=== PATIENT | female | born 1945 | race Hispanic/Latino ===

== ENCOUNTER 2019-01-13 14:26 | Inpatient (IN) | payer OTHER, MEDICARE ==
[~2019-01-13] VITALS: Ht 149.9 cm; Wt 95.3 kg
[~2019-01-13 14:26] MED LIST: ACET-2123 PO; AEC81 PO; ATOR20TA65 PO; BISA-72 PO; CLOT15CR4 TP; DICY10 PO; DIPH25CA7 PO; Diltiazem Hcl PO; FERR-82 PO; FURO40TA5 PO; Folic Acid PO; HYDR-4064 PO; INS7030 SQ; INSREG SQ; LORA10TA7 PO; LOSA25TA41 PO; Lactulose PO; NYST100P2 TP; PANT40TA PO; POLY17PO4 PO; [UNRECOGNIZED DRUG - CODE] TP
[2019-01-13 14:56] LABS: BASOPHILS % (AUTO) 0.4 % (0.0-5.0); EOSINOPHILS % (AUTO) 0.3 % (0.0-8.0); LYMPHOCYTES % (AUTO) 10.7 % (21.0-51.0); MEAN CORPUSCULAR HEMOGLOBIN 27.1 pg (27.0-33.0); MEAN CORPUSCULAR VOLUME 84.7 fL (79-99); MONOCYTES % (AUTO) 8.5 % (3.0-13.0); NEUTROPHILS % (AUTO) 80.1 % (40.0-77.0); PLATELET COUNT (AUTO) 328 K/uL (130-400); RED BLOOD CELL COUNT(AUTO) 5.55 MIL/uL (4.00-5.50); RED CELL DISTRIBUTION WIDTH 15.9 % (11.0-15.5); WHITE BLOOD COUNT (AUTO) 10.5 K/uL (4.8-10.8)
[2019-01-13] MEDS ORDERED: SODIUM CHLORIDE 0.9% 1000ML 1,000 ML IV ONE ×2 (15:09→18:24)
[2019-01-13 15:25] LABS: HEMOGLOBIN A1C 11.2 % (4.0-6.0)
[2019-01-13 15:27] LABS: APPEARANCE,URINE Clear (CLEAR); BILIRUBIN,URINE Negative (NEGATIVE); COLOR,URINE Yellow (YELLOW); GLUCOSE, URINE (UA) >=1000 mg/dL (NEGATIVE); KETONES,URINE Negative (NEGATIVE); LEUKOCYTE ESTERASE ,URINE Negative (NEGATIVE); NITRATE,URINE Negative (NEGATIVE); OCCULT BLOOD,URINE Negative (NEGATIVE); PH,URINE 5.5 (5.0-8.0); PROTEIN,URINE Negative (NEGATIVE)
[2019-01-13 15:37] LABS: BACTERIA,URINE Rare /HPF (None Seen); RBC,URINE 0-1 /HPF (0-1); WBC,URINE 0-1 /HPF (0-1)
[2019-01-13 15:38] LABS: YEAST,URINE BUDDING Few /HPF (None Seen)
[2019-01-13 15:39] LABS: SQUAMOUS EPITHELIAL CELL,UR Moderate /HPF (0-2)
[2019-01-13 15:50] LABS: ABG BASE EXCESS 1.2 mmol/L (-2.0-3.0); ABG HCO3 25.1 mmol/L (21.0-28.0); ABG OXYGEN SATURATION 96.1 % (95.0-99.0); ABG PCO2 38 mmHg (32-45)
[2019-01-13] MEDS ORDERED: FLUCONAZOLE 100 MG TAB ONE (16:11)
[2019-01-13] MEDS ORDERED: INSULIN HUMULIN R 100 UNIT/ML 3ML ONE (16:11)
[2019-01-13] MEDS ORDERED: INS7030 SQ (16:29)
[2019-01-13] MEDS ORDERED: FURO40TA5 PO (16:29)
[2019-01-13] MEDS ORDERED: TRIAMCINOLONE (16:41)
[2019-01-13] MEDS ORDERED: LEVAQUIN PO (16:41)
[2019-01-13] MEDS ORDERED: ALBU2.5V2 IH (16:41)
[2019-01-13] MEDS ORDERED: DOXY100C2 PO (16:41)
[2019-01-13] MEDS ORDERED: CLOT15C TP (16:41)
[2019-01-13] MEDS ORDERED: TIMO1DRO2 OP (16:41)
[2019-01-13] MEDS ORDERED: APIX5TAB PO (16:41)
[2019-01-13] MEDS ORDERED: TRAM50TA4 PO (16:41)
[2019-01-13] MEDS ORDERED: DILT180C63 PO (16:41)
[2019-01-13] MEDS ORDERED: CLON0.1T PO (16:41)
[2019-01-13] MEDS ORDERED: INSU100I3 SQ ×2 (16:41→16:42)
[2019-01-13] MEDS ORDERED: FLUT1BLS IH (16:41)
[2019-01-13] MEDS ORDERED: SODIUM CHLORIDE 0.9% 1000ML 1,000 ML IV SCH (17:00)
[2019-01-13 19:20] VITALS: BP 129/76
[2019-01-13] MEDS ORDERED: GLUCAGON 1MG KIT 1 MG ML IM PRN ×2 (20:15→20:45)
[2019-01-13] MEDS ORDERED: DEXTROSE 50%-WATER 50 ML DISP.SYRIN IV PRN ×2 (20:15→20:45)
[2019-01-13] MEDS ORDERED: ACETAMINOPHEN 325 MG TAB PO PRN (20:30)
[2019-01-13] MEDS ORDERED: DiphenhydrAMINE HCL 50 MG/ML VIAL IV PRN (20:30)
[2019-01-13] MEDS ORDERED: MAG HYDROX/AL HYDROX/SIMETH ES 30 ML SUSP UDCUP PO PRN (20:30)
[2019-01-13] MEDS ORDERED: ONDANSETRON HCL 4 MG/2 ML VIAL IV PRN (20:30)
[2019-01-13] MEDS ORDERED: CLONIDINE HCL 0.1 MG TABLET PO PRN (20:30)
[2019-01-13] MEDS ORDERED: LACTULOSE 20 GM/30 ML UDCUP PO PRN (20:30)
[2019-01-13] MEDS ORDERED: DIPHENHYDRAMINE HCL 25 MG CAPSULE PO PRN (20:30)
[2019-01-13] MEDS: SODIUM CHLORIDE 0.9% 1000ML 1,000 ML IV SCH (20:36)
[2019-01-13] MEDS: INSULIN R PO SS1 SQ SCH (20:38)
[2019-01-13] MEDS ORDERED: POTASSIUM CHLORIDE 20 MEQ ERTAB PO PRN (20:45)
[2019-01-13] MEDS ORDERED: POTASSIUM CHLORIDE 10MEQ/100ML 100 ML IV PRN (20:45)
[2019-01-13] MEDS ORDERED: LIDOCAINE HCL-MPF 1% 2ML VIAL IVP PRN (20:45)
[2019-01-13] MEDS ORDERED: POTASSIUM CHLORIDE 10% ELIXIR 20 MEQ/15 ML UDCUP PO PRN (20:45)
[2019-01-13] MEDS ORDERED: ATORVASTATIN CALCIUM 20 MG TABLET PO SCH (21:00)
[2019-01-13] MEDS: APIXABAN 5 MG TABLET PO SCH (21:52)
[2019-01-14 00:15] VITALS: BP 144/80
[2019-01-14] MEDS: ACETAMINOPHEN 325 MG TAB PO PRN ×2 (01:56→06:03)
[2019-01-14] MEDS: SODIUM CHLORIDE 0.9% 1000ML 1,000 ML IV SCH ×2 (02:35→12:40)
[2019-01-14 03:35] VITALS: BP 127/66
[2019-01-14] MEDS ORDERED: INSULIN NPH 100 UNIT/ML 3ML SQ SCH ×2 (07:30→16:30)
[2019-01-14] MEDS: INSULIN R PO SS1 SQ SCH ×3 (07:30→16:52)
[2019-01-14 07:48] VITALS: BP 147/83
--- NOTE | 2019-01-14 08:00 | NUR ---
PATIENT UPDATE PT ADMITTED WITH ELEVATED BLOOD SUGAR READINGS, DR. OLMSTEAD CALLED WITH THE BLOOD SUGAR RESULTS AND WAS MADE AWARE THAT HE PT REFUSED THE SLIDING SCALE COVERAGE THAT SHE ORDERED. ORDERED TO JUST TO GO AHEAD AND USE THE PT'S OWN INSULIN. TALKED TO THE PT ABOUT THE MD'S ADVISE AND ENCOURAGED THE PT TO USE HER OWN INSULIN BUT REFUSED TO DO SO SAYING THE HER BLOOD SUGAR IS GOING TO DROP. SHE WAS JUST GIVEN A SANDWICH TRAY PER REQUEST BEFORE I ATTEMPTED GIVING HER THE INSULIN AND SHE SAID THAT SHE HASN'T EATEN THE SANDWICH AND WAS ASKING THE FAMILY WHO CAME TO VISIT TO BUY HER FOOD FROM OUTSIDE BECAUSE SHE'S HUNGRY, PT AWARE OF HER BLOOD SUGARS ALMOST IN THE 400'S BUT STILL INSISTS ON GETTING SOMETHING TO EAT. WAS SCREAMING THAT SHE'S HUNGRY THROUGHOUT THE NIGHT AND HAD HER BLOOD SUGAR CHECKED AROUND 4 TO 5 TIMES DURING THE NIGHT. PT WITH MARKED EXCORIATION IN THE DAWNA AREAS, PICTURES TAKEN. ALSO SOME EXCORIATION NOTED IN THE DAWNA RECTAL AREAS, SCREAMS WHEN SHE WAS CHANGED AFTER A MAJOR INCONTINENCE, COMPLAINING OF SO MUCH PAIN, TYLENOL GR X GIVEN. PT BEDBOUND, NEEDED A LOT OF HELP WITH REPOSITIONING IN THE BED. REFUSED TO GIVE THE STAFF HER HOME MEDS TO PUT IN THE RECORDS BUT REFUSED.
[2019-01-14] MEDS ORDERED: PANTOPRAZOLE SODIUM 40 MG TABLET.DR PO SCH (09:00)
[2019-01-14] MEDS ORDERED: ALBUTEROL SULFATE 2.5 MG IH PRN (09:00)
[2019-01-14] MEDS ORDERED: DILTIAZEM HCL 180 MG CAP.SR.24H PO SCH (09:00)
[2019-01-14] MEDS ORDERED: FLUTICASONE/VILANTEROL 1 EACH BLST.W.DEV IH SCH (09:00)
[2019-01-14] MEDS ORDERED: DOXYCYCLINE HYCLATE 100 MG TABLET PO SCH (09:00)
[2019-01-14] MEDS: APIXABAN 5 MG TABLET PO SCH (09:26)
[2019-01-14 11:50] VITALS: BP 162/84
--- NOTE | 2019-01-14 15:30 | NUR ---
DCP CM met with pt discussed dc plans. Pt is assists w/ADL's lives at home with spouse. Pt has a provider 4hrs/day Mon-Th and 3hrs/day Fri-Lazara, walker, hospital bed, wheelchair, bedside commode, caregiver. Pt feels safe to go back home, son able to assist with transportation and needs as necessary. DC plan to home once stable. CM to cont to follow up. Addendum: 01/14/19 at 1537 by NIEVES LIN LVN CM Amended: Links added.
[2019-01-14 16:00] VITALS: BP 153/79
--- NOTE | 2019-01-14 16:55 | NUR ---
CM Note: EMS arranged and faxed, primary nurse to call [facility] once pt ready to DC. GARCÍA#[id number]
[2019-01-14] MEDS ORDERED: INSULIN HUMULIN 70/30 100 UNIT/ML 3ML SQ SCH (17:00)
== END 2019-01-14 18:40 | disposition home or self-care (01) | DRG 638 ==
LOC: EDH 14:26 → EDHIP 16:15 → 3DH 18:26
PROVIDERS: ADMIT Internal Medicine; ATTEND Internal Medicine
DX: E11.00 Type 2 diabetes mellitus with hyperosmolarity without nonketotic hyperglycemic-hyperosmolar coma (NKHHC) (principal); I13.0 Hypertensive heart and chronic kidney disease with heart failure and stage 1 through stage 4 chronic kidney disease, or unspecified chronic kidney disease; I50.32 Chronic diastolic (congestive) heart failure; D68.69 Other thrombophilia; F11.20 Opioid dependence, uncomplicated; G72.0 Drug-induced myopathy; M80.00XA Age-related osteoporosis with current pathological fracture, unspecified site, initial encounter for fracture; Z68.41 Body mass index [BMI] 40.0-44.9, adult; E11.65 Type 2 diabetes mellitus with hyperglycemia; E86.0 Dehydration; E66.01 Morbid (severe) obesity due to excess calories; N18.2 Chronic kidney disease, stage 2 (mild); B35.1 Tinea unguium; E11.21 Type 2 diabetes mellitus with diabetic nephropathy; E11.22 Type 2 diabetes mellitus with diabetic chronic kidney disease; E11.36 Type 2 diabetes mellitus with diabetic cataract; E78.1 Pure hyperglyceridemia; E78.5 Hyperlipidemia, unspecified; F32.4 Major depressive disorder, single episode, in partial remission; F41.9 Anxiety disorder, unspecified; H40.1190 Primary open-angle glaucoma, unspecified eye, stage unspecified; I48.2 Chronic atrial fibrillation; I70.0 Atherosclerosis of aorta; J30.9 Allergic rhinitis, unspecified; J44.9 Chronic obstructive pulmonary disease, unspecified; K21.9 Gastro-esophageal reflux disease without esophagitis; M19.90 Unspecified osteoarthritis, unspecified site; M54.10 Radiculopathy, site unspecified; Z96.651 Presence of right artificial knee joint; R32 Unspecified urinary incontinence; T46.6X5A Adverse effect of antihyperlipidemic and antiarteriosclerotic drugs, initial encounter; Z79.01 Long term (current) use of anticoagulants; Z79.4 Long term (current) use of insulin; Z79.51 Long term (current) use of inhaled steroids; Z79.82 Long term (current) use of aspirin; Z79.899 Other long term (current) drug therapy; Z91.19 Patient's noncompliance with other medical treatment and regimen; Z91.14 Patient's other noncompliance with medication regimen; Z90.49 Acquired absence of other specified parts of digestive tract; Z90.10 Acquired absence of unspecified breast and nipple; Z88.8 Allergy status to other drugs, medicaments and biological substances; Z85.3 Personal history of malignant neoplasm of breast; Z83.3 Family history of diabetes mellitus; Z82.49 Family history of ischemic heart disease and other diseases of the circulatory system
CPT/HCPCS: 36415; 36600; 80048; 81001; 82803; 82948; 83036; 83930; 85025; 97039; 99291; A4344; G0378; J1815; J7030

== ENCOUNTER 2019-04-27 16:14 | Inpatient (IN) | payer MEDICARE, OTHER | END 2019-04-30 15:40 | LOC: EDH 16:14 → EDHIP 18:51 → 3BH 20:32 | DX: L03.115 Cellulitis of right lower limb (principal); N39.0 Urinary tract infection, site not specified; E11.65 Type 2 diabetes mellitus with hyperglycemia; I48.2 Chronic atrial fibrillation; E86.0 Dehydration ==